=== PATIENT | male | born 1990 | race Caucasian/White ===

== ENCOUNTER → 2022-09-17 | Outpatient (CLI) | payer OTHER | LOC: M RAD 11:50 | PROVIDERS: ATTEND Orthopaedic Surgery | DX: S52.501A Unspecified fracture of the lower end of right radius, initial encounter for closed fracture (principal); X58.XXXA Exposure to other specified factors, initial encounter; Y92.9 Unspecified place or not applicable ==

== ENCOUNTER 2022-09-26 08:26 | Day surgery (SDC) | payer OTHER ==
[~2022-09-26] VITALS: Ht 185.4 cm; Wt 103.5 kg
[~2022-09-26 08:26] MED LIST: ACET1TAB55 PO; BREO1INH3 INH; CETI-24 PO; HYDR-4571 PO; IBUP-1114 PO; KETOROLAC 60MG 2ML VIAL As Ordered ONE; LIDOCAINE 2% 100MG/5ML SDV (FOR ANES.) As Ordered ONE; MIDAZOLAM INJ 2MG/2ML VIAL As Ordered ONE; NAPR-885 PO; ONDANSETRON 4MG 2ML VIAL As Ordered ONE; VENTAER INH; fentaNYL 100 MCG/2 ML INJECTION As Ordered ONE; propofoL 200 MG/20 ML VIAL As Ordered ONE
[2022-09-26] MEDS ORDERED: LR 1,000 ML IV SCH (08:50)
[2022-09-26] MEDS ORDERED: ROPIvacaine 0.5% 30ML VIAL PN ONE (10:10)
[2022-09-26] MEDS ORDERED: LIDOCAINE 1% SDV 5ML VIAL PN ONE ×2 (10:10→16:10)
[2022-09-26] MEDS ORDERED: MIDAZOLAM INJ 2MG/2ML VIAL IV PRN (10:10)
[2022-09-26] MEDS ORDERED: fentaNYL 100 MCG/2 ML INJECTION IV PRN ×2 (10:10→14:40)
[2022-09-26] MEDS ORDERED: EPINEPHrine INJ 1 MG/ML 1ML AMP PN ONE ×2 (10:10→16:05)
[2022-09-26] MEDS ORDERED: BACITRACIN OINTMENT 30GM TUBE As Ordered ONE (11:24)
[2022-09-26] MEDS ORDERED: ceFAZolin SOD 2 GM in IV 1 EA IV ONE (11:35)
[2022-09-26] MEDS ORDERED: ceFAZolin 2 GM/D5W 50 ML IV BAG As Ordered ONE (12:03)
[2022-09-26] MEDS ORDERED: LABETALOL 100MG/20ML VIAL As Ordered ONE (12:36)
[2022-09-26] MEDS ORDERED: fentaNYL 100 MCG/2 ML INJECTION As Ordered ONE (13:59)
[2022-09-26] MEDS ORDERED: oxyCODONE 5MG TAB PO PRN (14:40)
[2022-09-26] MEDS ORDERED: ONDANSETRON 4MG 2ML VIAL IV PRN (14:40)
[2022-09-26] MEDS: HYDROMORPHONE HCL 0.5 MG/ 0.5 ML SYRINGE IV PRN ×2 (15:07→15:17)
[2022-09-26] MEDS ORDERED: PERC5TAB12 PO (15:10)
[2022-09-26] MEDS ORDERED: MIDAZOLAM INJ 2MG/2ML VIAL As Ordered ONE (15:32)
[2022-09-26] MEDS ORDERED: dexAMETHasone 20MG/5ML VIAL IV ONE (15:45)
[2022-09-26] MEDS ORDERED: dexAMETHasone 10MG/1ML VIAL PRES.FREE PN ONE (15:55)
[2022-09-26] MEDS: MIDAZOLAM INJ 2MG/2ML VIAL IV PRN ×2 (16:15→16:16)
[2022-09-26] MEDS: fentaNYL 100 MCG/2 ML INJECTION IV PRN ×2 (16:18→16:21)
[2022-09-26 17:27] VITALS: BP 166/88; TEMP 97.3; O2SAT 96
== END 2022-09-26 17:57 | disposition home or self-care (01) ==
LOC: M SDC 08:26
PROVIDERS: ATTEND Orthopaedic Surgery Hand Surgery
DX: S52.571A Other intraarticular fracture of lower end of right radius, initial encounter for closed fracture (principal); W19.XXXA Unspecified fall, initial encounter; Y92.89 Other specified places as the place of occurrence of the external cause; J45.909 Unspecified asthma, uncomplicated; F41.9 Anxiety disorder, unspecified; Z79.51 Long term (current) use of inhaled steroids; Z79.891 Long term (current) use of opiate analgesic; Z87.891 Personal history of nicotine dependence
CPT/HCPCS: 25608; 73110; 76000; C1713; C1762; J0690; J1100; J1170; J1885; J2250; J2405; J2795; J3010

== ENCOUNTER → 2022-10-05 | Outpatient (CLI) | payer OTHER ==
[~2022-10-05] MED LIST changes: -KETOROLAC 60MG 2ML VIAL As Ordered ONE; -LIDOCAINE 2% 100MG/5ML SDV (FOR ANES.) As Ordered ONE; -MIDAZOLAM INJ 2MG/2ML VIAL As Ordered ONE; -ONDANSETRON 4MG 2ML VIAL As Ordered ONE; +PERC5TAB12 PO; -fentaNYL 100 MCG/2 ML INJECTION As Ordered ONE; -propofoL 200 MG/20 ML VIAL As Ordered ONE
== END ==
LOC: M SOG 09:01
PROVIDERS: ATTEND Physician Assistant
DX: S52.571D Other intraarticular fracture of lower end of right radius, subsequent encounter for closed fracture with routine healing (principal); Z98.890 Other specified postprocedural states

== ENCOUNTER → 2022-11-19 | Outpatient (CLI) | payer OTHER | LOC: M SOG 07:56 | PROVIDERS: ATTEND Physician Assistant | DX: S52.571D Other intraarticular fracture of lower end of right radius, subsequent encounter for closed fracture with routine healing (principal) ==

== ENCOUNTER → 2022-12-24 | Outpatient (CLI) | payer OTHER | LOC: M SOG 08:01 | PROVIDERS: ATTEND Physician Assistant | DX: S52.571D Other intraarticular fracture of lower end of right radius, subsequent encounter for closed fracture with routine healing (principal); Y93.9 Activity, unspecified; Y92.9 Unspecified place or not applicable ==

== ENCOUNTER → 2023-02-05 | Outpatient (CLI) | payer OTHER | LOC: M SOG 07:50 | PROVIDERS: ATTEND Physician Assistant | DX: S52.571D Other intraarticular fracture of lower end of right radius, subsequent encounter for closed fracture with routine healing (principal) ==

== ENCOUNTER 2024-05-23 23:45 | Emergency (ER) | payer OTHER ==
[~2024-05-23] VITALS: Ht 185.4 cm; Wt 100.5 kg
[~2024-05-23 23:45] MED LIST changes: +TRAM50TA2 PO; +TRAZ-252 PO
[2024-05-24] MEDS: PROMETHAZINE 25MG/ML 1ML VIAL IV ONE (01:07)
[2024-05-24] MEDS: KETOROLAC 30 MG/ML 1ML VIAL IV ONE (01:07)
[2024-05-24 01:24] LABS: BASO % 0.3 % (0.0-1.0); EOS # 0.1 10^3/uL (0.0-0.5); EOS % 1.4 % (0.0-3.0); HEMATOCRIT 42.6 % (42.0-52.0); HEMOGLOBIN 15.2 g/dl (13.5-17.5); LYMPH # 0.3 10^3/uL (1.5-5.0); LYMPH % 3.1 % (24.0-44.0); MEAN CORPUSCULAR HEMOGLOBIN 30.6 pg (27.0-33.0); MEAN CORPUSCULAR HGB CONC 35.7 g/dl (32.0-36.5); MEAN CORPUSCULAR VOLUME 85.9 fl (80.0-96.0); MONO # 0.5 10^3/uL (0.0-0.8); MONO % 4.8 % (2.0-8.0); NEUTROPHILS # 8.4 10^3/uL (1.5-8.5); NEUTROPHILS % 90.3 % (36.0-66.0); PLATELET COUNT, AUTOMATED 155 10^3/uL (150-450); RED BLOOD COUNT 4.96 10^6/uL (4.30-6.10); WHITE BLOOD COUNT 9.3 10^3/uL (4.0-10.0)
[2024-05-24 01:57] LABS: LIPASE 28 U/L (12-53)
[2024-05-24 01:59] LABS: ALBUMIN 3.8 G/DL (3.2-5.2); ALKALINE PHOSPHATASE 95 U/L (40-129); ALT/SGPT 22 U/L (7.0-40); AST/SGOT 17 U/L (<34); BILIRUBIN,DIRECT 0.2 MG/DL (<0.4); BILIRUBIN,TOTAL 0.7 MG/DL (0.3-1.2); BLOOD UREA NITROGEN 14 MG/DL (9-23); CARBON DIOXIDE LEVEL 26 MMOL/L (20-31); CHLORIDE LEVEL 109 MMOL/L (98-107); CREATININE FOR GFR 0.95 MG/DL (0.70-1.30); GLOMERULAR FILTRATION RATE > 60.0 (>60); GLUCOSE, FASTING 110 MG/DL (60-100); POTASSIUM SERUM 4.4 MMOL/L (3.5-5.1); SODIUM LEVEL 144 MMOL/L (136-145); TOTAL PROTEIN 7.1 G/DL (5.7-8.2)
[2024-05-24] MEDS ORDERED: ISOVUE-370 76% 100ML VIAL As Ordered ONE (02:10)
[2024-05-24] MEDS: ONDANSETRON 4MG 2ML VIAL IV ONE (04:42)
[2024-05-24] MEDS ORDERED: REGL10TA6 PO (05:08)
[2024-05-24] MEDS ORDERED: ONDA-282 PO (05:08)
[2024-05-24 05:24] VITALS: BP 111/69; TEMP 99.9; O2SAT 95
== END 2024-05-24 05:36 | disposition home or self-care (01) ==
LOC: M ED 23:45 → EDBD 23:45 → M ED 05-24 05:36
DX: A09 Infectious gastroenteritis and colitis, unspecified (principal); F17.290 Nicotine dependence, other tobacco product, uncomplicated; F10.10 Alcohol abuse, uncomplicated; Z91.09 Other allergy status, other than to drugs and biological substances; Z79.1 Long term (current) use of non-steroidal anti-inflammatories (NSAID); Z79.51 Long term (current) use of inhaled steroids; Z79.899 Other long term (current) drug therapy
CPT/HCPCS: 74177; 80048; 80076; 83690; 85025; 87486; 87581; 87633; 87798; 96374; 96375; 99284; J1885; J2405; J2550; Q9967

== ENCOUNTER → 2025-01-19 | Outpatient (CLI) | payer OTHER ==
[~2025-01-19] MED LIST changes: +ONDA-282 PO; +REGL10TA6 PO
== END ==
LOC: M RAD 11:47
PROVIDERS: ATTEND Physician Assistant
DX: R06.00 Dyspnea, unspecified (principal)

== ENCOUNTER → 2025-03-02 | Outpatient (CLI) | payer OTHER ==
[~2025-03-02] MED LIST changes: +METHACHOLINE KIT (6 VIAL.NEB PREMIX) INH ONE
== END ==
LOC: M CARPUL 15:39
PROVIDERS: ATTEND Physician Assistant
DX: R06.00 Dyspnea, unspecified (principal)